=== PATIENT | male | born 1950 | race Caucasian/White ===

== ENCOUNTER → 2017-03-07 | Outpatient (CLI) | payer MEDICARE, BC ==
--- NOTE | 2017-03-07 11:10 | PN ---
PROGRESS NOTE DATE OF SERVICE: 03/07/2017 A 66-year-old gentleman who has been followed for treatment of extremely severe obstructive sleep apnea-hypopnea syndrome. The patient has apnea-hypopnea index in the range of 98. He continued to use machine every night without any problems related to the mask or humidification. He is receiving all his supplies on a regular basis and does not snore with the CPAP. [place] Sleepiness Scale today is 6. I checked his CPAP unit. Usage is 30/30 nights for more than 4 hours. Average usage is 6.6 hours. Pressure is 10 cm of water, leak L/min which is acceptable range. Apnea- hypopnea index for the last month in the range of 4. For the last night, it is 3.0. MEDICATIONS: , Toprol, aspirin, hydrochlorothiazide, Zyloprim, potassium supplement, which is lisinopril, metformin, glimepiride, Lantus, NovoLog, niacin, fish oral, vitamin D3, ciclopirox solution. PHYSICAL EXAM: Patient in no distress, BP 158/84, HR 88, RR 16, height 5, 8-1/2, weight 226, BMI 33.8, temperature 98.7, oxygen saturation at room 97%. Extremely low position of soft palate. ABDOMEN: Slightly obese. Neck Supple, no JVD. Thyroid is not palpable. LUNGS Clear to percussion and to auscultation. Good air exchange. No wheezing or rhonchi. HEART S1, S2 regular. No murmurs, gallops, or rubs. EXTREMITIES No clubbing or cyanosis. PARTRIDGE FARMER Awake, alert, and oriented X3. Cranial nerves 2 to 7 intact. There is no fasciculation or atrophy. noted. No focal deficits observed. IMPRESSION: 1. Extremely severe obstructive sleep apnea-hypopnea syndrome on control with CPAP at 10 cm of water. Patient demonstrated 100% compliance with treatment, benefitting from treatment. 2. Obesity. Patient lost 1 pounds since previous visit. 3. Hypertension. 4. Diabetes mellitus. 5. Coronary artery disease. 6. Gout. 7. Hyperlipidemia. PLAN: 1. Continue treatment with CPAP every night for the whole night at the pressure of 10 cm of water. 2. Continue losing weight. 3. Sleep hygiene with regular time in bed for at least 8 hours. 4. No driving if feeling any sleepiness. 5. Prescription for all necessary CPAP supplies, including mask, tube and filters. Followup visit in 1 year or earlier if patient has any problem related to the sleep. Thank you very much for allowing me to participate in management of your patient. Sincerely, Jonnie Cruz MD, PhD, FAASM Diplomat of [employer] Sensitized Paper Tester of [facility] [place] MMODL / IJN: [id number] /
== END | disposition home or self-care (01) ==
LOC: SLEEP 09:53
PROVIDERS: ATTEND Internal Medicine
DX: G47.33 Obstructive sleep apnea (adult) (pediatric) (principal); E66.9 Obesity, unspecified; I10 Essential (primary) hypertension; E11.9 Type 2 diabetes mellitus without complications; I25.10 Atherosclerotic heart disease of native coronary artery without angina pectoris; M10.9 Gout, unspecified; E78.5 Hyperlipidemia, unspecified

== ENCOUNTER → 2018-03-06 | Outpatient (CLI) | payer MEDICARE, BC ==
--- NOTE | 2018-03-06 17:28 | PN ---
PROGRESS NOTE DATE OF SERVICE: 03/06/2018 67-year-old gentleman who has been followed in Sleep Center for treatment of obstructive sleep apnea-hypopnea syndrome. The patient continues successfully to use his CPAP equipment every night for the whole night without any significant problems related to mask fitting, pressure, or humidification. He is getting all his supplies on a regular basis without problems. [place] Sleepiness Scale today is 4. I checked his CPAP unit. CPAP pressure is 10 cm of water. Patient using equipment 100% of the time more than 4 hours, every 7.1 hours per night. Leak is 16 L/minute which is acceptable. Apnea-hypopnea index 3.0, which is normal range. MEDICATIONS: Toprol, aspirin, hydrochlorothiazide, potassium supplement, Zyloprim, lisinopril, metformin and glimepiride, Lantus, NovoLog, niacin, fish oil, vitamin D3. PHYSICAL EXAM: Patient is in no distress. BP 125/78, HR 89, RR 16, height 5 feet 8-1/2 inches, weight 221.0, which is 5 pounds less than during last visit, temperature 98.3, oxygen saturation room air 98%. Oropharynx extremely low position of soft palate. Neck Supple, no JVD. Thyroid is not palpable. LUNGS Clear to percussion and to auscultation. Good air exchange. No wheezing or rhonchi. HEART S1, S2 regular. No murmurs, gallops, or rubs. ABDOMEN Soft and nontender. Bowel sounds are present. No organomegaly appreciated. EXTREMITIES No clubbing or cyanosis. SOFTWARE QA MANAGER Awake, alert, and oriented X3. Cranial nerves 2 to 7 intact. There is no fasciculation or atrophy. noted. No focal deficits observed. IMPRESSION: 1. Obstructive sleep apnea-hypopnea syndrome, on full control with CPAP at 10 cm of water. Patient demonstrated 100% compliance with treatment benefitting from treatment. 2. Hypertension. 3. Diabetes mellitus. 4. Coronary artery disease. 5. Gout. 6. Mild obesity, BMI 33.1. Patient lost 5 pounds. PLAN: 1. Patient will continue to use CPAP equipment every night for the whole night. 2. Continue losing weight. 3. Sleep hygiene with regular time in bed for at least 8 hours. 4. No driving if feeling sleepiness. 5. We will maintain prescription for all necessary CPAP supplies. 6. Followup visit in 1 year. Thank you very much for allowing me to participate in management of your patient. Sincerely, Jonnie Cruz MD, PhD, FAASM Diplomat of [employer] Medicine Media Sales Executive of [facility] [place] MMMAURICE / TEODORA: [id number] /
== END | disposition home or self-care (01) ==
LOC: SLEEP 15:37
PROVIDERS: ATTEND Internal Medicine
DX: G47.33 Obstructive sleep apnea (adult) (pediatric) (principal); I10 Essential (primary) hypertension; E11.9 Type 2 diabetes mellitus without complications; I25.10 Atherosclerotic heart disease of native coronary artery without angina pectoris; M10.9 Gout, unspecified; E66.9 Obesity, unspecified; Z68.33 Body mass index [BMI] 33.0-33.9, adult; Z79.82 Long term (current) use of aspirin; Z79.84 Long term (current) use of oral hypoglycemic drugs; Z79.4 Long term (current) use of insulin; Z99.89 Dependence on other enabling machines and devices; Z79.899 Other long term (current) drug therapy

== ENCOUNTER → 2018-06-13 | Outpatient (CLI) | payer MEDICARE, BC ==
--- NOTE | 2018-06-13 11:24 | XR ---
EXAMINATION TYPE: XR KUB DATE OF EXAM: 06/13/2018 COMPARISON: NONE HISTORY: Bilateral renal stones TECHNIQUE: One view abdominal series FINDINGS: The osseous structures are intact. The bowel gas pattern is nonspecific. Pelvis: There are 2 calcifications within the pelvis which have a central lucency compatible with phl eboliths. Additional vascular appearing calcifications are noted. 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 Right kidney: There is a large renal pelvic calcification measuring 1.5 x 0.9 cm. Left kidney: There are 4 calcifications within the left kidney involving the mid to lower pole rangin g in size from 5.5 to 4 mm. IMPRESSION: 1. Single large right renal pelvic calcification measuring 1.5 cm. 2. There are multiple (4) 5 mm or less lower pole left renal calculi.
== END | disposition home or self-care (01) ==
LOC: RADXRMAIN 09:48
PROVIDERS: ATTEND Urology
DX: N20.0 Calculus of kidney (principal); N28.89 Other specified disorders of kidney and ureter
CPT/HCPCS: 74018

== ENCOUNTER → 2019-02-19 | Outpatient (CLI) | payer MEDICARE, BC ==
--- NOTE | 2019-02-19 11:26 | SFUN ---
SLEEP CENTER FOLLOW UP NOTE DATE OF SERVICE: 02/19/2019 This 68-year-old gentleman has been followed in sleep center for treatment of obstructive sleep apnea-hypopnea syndrome. Patient successfully continuing to use his CPAP equipment every night for the whole night. No snoring with the machine. No symptoms of excessive daytime sleepiness. [place] Sleepiness Scale is 5. I checked CPAP unit. CPAP pressure is 10 cm of water. Usage is 100% of the time, 7.1 hours per night. Leak is 13 L/minute, which is normal range. Apnea-hypopnea index is 2.7, which is normal. MEDICATIONS: Aspirin, Toprol, hydrochlorothiazide, potassium supplement, Zyloprim, lisinopril, metformin, glimepiride, Lantus, NovoLog, niacin, fish oil, vitamin D3. PHYSICAL EXAMINATION: During physical exam, patient in no distress. VITAL SIGNS: BP 156/78, HR 84, RR 16, height 5 feet 8-1/2 inches, weight 217 pounds. The patient lost 4 pounds comparing with the previous visit one year ago. Body mass index 32.5. Temperature 98.4, oxygen saturation at room air 98%. HEENT: PERRLA, EOMI. Oropharynx extremely low soft palate, Mallampati 4. NECK: Supple, no JVD. Thyroid is not palpable. LUNGS: Clear to percussion and to auscultation. Good air exchange. No wheezing or rhonchi. HEART: S1, S2 regular. No murmurs, gallops, or rubs. ABDOMEN: Soft and nontender. Bowel sounds are present. No organomegaly appreciated. EXTREMITIES: No clubbing or cyanosis. PHOTOSTATIC COPY MAKER: Awake, alert, and oriented X3. Cranial nerves 2 to 7 intact. There is no fasciculation or atrophy. noted. No focal deficits observed. IMPRESSION: 1. Obstructive sleep apnea-hypopnea syndrome. Patient demonstrated 100% compliance with treatment benefitting from treatment. 2. Mild obesity. Patient lost 4 pounds comparing with the previous visit. 3. Hypertension. 4. Diabetes mellitus. 5. Coronary artery disease. 6. History of gout. PLAN: 1. I will maintain all necessary prescriptions for CPAP supplies including nasal pillow mask, AirFit P10, large size, tube, filters. 2. Patient will continue to use CPAP equipment every night for the whole night. 3. Continue losing weight. 4. Precautions related to driving. No driving if feeling sleepiness. 5. Follow-up visit in one year or earlier if patient has any problems. Thank you very much for allowing me to participate in management of your patient. Sincerely. Jonnie Cruz MD, PhD, FAASM Diplomat of [employer] Specialties [employer] Board of Internal Medicine Roastmaster of [facility] [place] MMODL / IJN: [id number] /
== END | disposition home or self-care (01) ==
LOC: SLEEP 10:06
PROVIDERS: ATTEND Internal Medicine
DX: G47.33 Obstructive sleep apnea (adult) (pediatric) (principal); I10 Essential (primary) hypertension; E11.9 Type 2 diabetes mellitus without complications; I25.10 Atherosclerotic heart disease of native coronary artery without angina pectoris; Z87.39 Personal history of other diseases of the musculoskeletal system and connective tissue; Z99.89 Dependence on other enabling machines and devices

== ENCOUNTER → 2019-06-17 | Outpatient (CLI) | payer MEDICARE, BC ==
--- NOTE | 2019-06-17 10:47 | XR ---
EXAMINATION TYPE: XR abdomen 1V DATE OF EXAM: 06/17/2019 COMPARISON: 06/13/2018 HISTORY: Bilateral renal calculi TECHNIQUE: One view abdominal series FINDINGS: Hypertrophic and degenerative change of the spine noted. Arthropathy of the hips with probable chroni c acetabular labral tears. Hypertrophic changes in the iliac crests.. The bowel gas pattern is nonsp ecific. Calcifications in the pelvis are stable. Right kidney: There is a large renal pelvic calcification measuring 1.5 x 0.9 cm. Left kidney: There are 4 calcifications within the left kidney involving the mid to lower pole rangin g in size from 5.5 to 4 mm. IMPRESSION: 1. Stable bilateral renal calculi..
== END | disposition home or self-care (01) ==
LOC: RADXRMAIN 08:52
PROVIDERS: ATTEND Urology
DX: N20.0 Calculus of kidney (principal)
CPT/HCPCS: 74018

== ENCOUNTER → 2019-12-01 | Outpatient (CLI) | payer MEDICARE, BC ==
[2019-12-01 17:58] LABS: Chol/HDL Ratio 6.26; LDL Cholesterol,Calculated 128.4 mg/dL (0.0-131.0); VLDL Calculation 55.6 mg/dL (5.00-40.00)
[2019-12-01 18:47] LABS: Hemoglobin A1C 8.3 % (4.0-6.0)
== END | disposition home or self-care (01) ==
LOC: LABWHC1 07:50
PROVIDERS: ATTEND Family Medicine
DX: E11.9 Type 2 diabetes mellitus without complications (principal); E78.5 Hyperlipidemia, unspecified
CPT/HCPCS: 36415; 80061; 82550; 83036

== ENCOUNTER → 2020-03-31 | Outpatient (CLI) | payer MEDICARE, BC ==
--- NOTE | 2020-03-31 19:59 | SFUN ---
SLEEP CENTER FOLLOW UP NOTE DATE OF SERVICE: 03/31/2020 This patient is a 69-year-old gentleman who has been followed in Sleep Center for treatment of obstructive sleep apnea-hypopnea syndrome. Patient successfully continues to use his CPAP equipment every night without significant problems related to mask fitting, pressure or humidification. [place] Sleepiness Scale today is 4. I checked his CPAP unit. Pressure is 10 cm of water. Usage is 30/30 nights and 28/30 nights for more than 4 hours. Average usage is 6.8 hours per night. Leak is 20 L/minute, which is borderline. Apnea-hypopnea index is 4.9. His medications are: 1. Atorvastatin 40 mg at bedtime. 2. Allopurinol 300 mg once a day. 3. Aspirin 81 mg once a day. 4. Amlodipine 5 mg once a day. 5. Glimepiride 1 mg twice a day. 6. Hydrochlorothiazide 50 mg once a day. 7. Lantus units once a day. 8. Lisinopril 20 mg twice a day. 9. Niacin 500 mg once a day. 10.NovoLog as needed per scale 3 times a day. 11.Plavix 75 mg once a day. 12.Toprol-XL 25 mg once a day. 13.Nitroglycerin 0.4 mg as needed. 14.Metformin 500 mg 3 times a day. 15.Patient also takes fish oil, vitamins, magnesium supplement. PHYSICAL EXAMINATION: GENERAL: A pleasant patient in no distress. VITAL SIGNS: BP 195/78, HR 94, RR 15, height 5 feet 8-1/2 inches, weight 213 pounds, BMI 31.9, temperature 98.6. Oxygen saturation at room air 97%. HEENT: PERRLA, EOMI. Evaluation of oropharynx showed tongue protrudes midline. Extremely low position of soft palate. Mallampati IV. NECK: Supple. No JVD. Thyroid is not palpable. LUNGS: Clear to percussion and to auscultation. Good air exchange. No wheezing or rhonchi. HEART: S1, S2 regular. No murmurs, gallops or rubs. ABDOMEN: Slightly obese. EXTREMITIES: No clubbing or cyanosis. WRAPPER COUNTER: Awake, alert, and oriented X3. Cranial nerves 2 to 7 intact. There is no fasciculation or atrophy. noted. No focal deficits observed. IMPRESSION: 1. Obstructive sleep apnea-hypopnea syndrome. Patient demonstrated good compliance with treatment, benefitting from treatment. 2. Hypertension. 3. Diabetes mellitus. 4. Coronary artery disease. 5. Gout. PLAN: 1. Patient will continue to use PAP equipment every night for the whole night. 2. Sleep hygiene with regular time in bed for at least 7-1/2 to 8 hours. 3. Precautions related to driving. No driving if feeling sleepiness. 4. I will maintain all necessary prescription for PAP supplies including mask, tube, filters. 5. Watching weight. 6. No driving if feeling sleepiness. 7. Follow-up visit in 6 months or earlier if patient has any problems. 8. I increased in CPAP to 11 cm of water because of borderline apnea/hypopnea index reading. Thank you very much for allowing me to participate in the management of your patient. Sincerely, Jonnie Cruz MD, PhD, FAASM Diplomat of [employer] Specialties [employer] Board of Internal Medicine Can Filling Machine Operator of [facility] [place] MMODL / MELLYN: [id number] /
== END | disposition home or self-care (01) ==
LOC: SLEEP 13:48
PROVIDERS: ATTEND Internal Medicine
DX: G47.33 Obstructive sleep apnea (adult) (pediatric) (principal); I10 Essential (primary) hypertension; E11.9 Type 2 diabetes mellitus without complications; I25.10 Atherosclerotic heart disease of native coronary artery without angina pectoris; M10.9 Gout, unspecified; Z99.89 Dependence on other enabling machines and devices; Z79.899 Other long term (current) drug therapy; Z79.891 Long term (current) use of opiate analgesic; Z79.01 Long term (current) use of anticoagulants; Z79.82 Long term (current) use of aspirin; Z79.4 Long term (current) use of insulin; Z79.1 Long term (current) use of non-steroidal anti-inflammatories (NSAID)

== ENCOUNTER → 2020-06-22 | Outpatient (CLI) | payer MEDICARE, BC ==
--- NOTE | 2020-06-22 09:26 | XR ---
EXAMINATION TYPE: XR KUB DATE OF EXAM: 06/22/2020 COMPARISON: 06/17/2019 HISTORY: Calculus with pain TECHNIQUE: One view abdominal series FINDINGS: Hypertrophic and degenerative changes of the spine. Bowel gas pattern nonspecific. Calcifications in the pelvis are stable and likely vascular with central lucency. Arthropathy of the hips. Right kidney: There is a stable calcification likely within the renal pelvis measuring 1.5 cm. No add itional calcifications. Left kidney: There are 3 rounded calcifications within the left kidney measuring 4.5 mm or less. Prio r exam had 4 calcifications. IMPRESSION: 1. Stable right renal calculus likely within the renal pelvis measuring 1.5 cm. 2. There are 3 left-sided renal calculi measuring 4.5 mm or less. On the prior exam there were 4 calc juan, therefore, there appears to be interval passage of one of these calculi.
== END | disposition home or self-care (01) ==
LOC: RADXRMAIN 09:04
PROVIDERS: ATTEND Urology
DX: N20.0 Calculus of kidney (principal)
CPT/HCPCS: 74018

== ENCOUNTER → 2020-10-13 | Outpatient (CLI) | payer MEDICARE, BC ==
--- NOTE | 2020-10-13 20:12 | SFUN ---
SLEEP CENTER FOLLOW UP NOTE DATE OF SERVICE: 10/13/2020 This 69-year-old gentleman has been followed in Sleep Center for treatment of obstructive sleep apnea-hypopnea syndrome. The patient successfully continues to use his CPAP equipment every night for the whole night and is getting his supplies on time. [place] Sleepiness Scale today is 5, which is normal. I checked his CPAP unit. CPAP pressure is 11 cm of water. Usage is 30/30 nights for more than 4 hours. His average usage is 6.7 hours per night. Leak is 17 L/minute. Apnea-hypopnea index is 2.5, which is normal. MEDICATIONS: 1. Atorvastatin 40 mg at bedtime. 2. Allopurinol 300 mg once a day. 3. Aspirin 81 mg once a day. 4. Amlodipine 5 mg once a day. 5. Glimepiride 1 mg twice a day. 6. Hydrochlorothiazide 50 mg once a day. 7. Lantus 70 units once a day. 8. Lisinopril 20 mg twice a day. 9. Niacin 500 mg once a day. 10.NovoLog as needed per scale 3 times a day. 11.Plavix 75 mg once a day. 12.Toprol-XL 25 mg once a day. 13.Metformin 500 mg 3 times a day. 14.Nitroglycerin 0.4 mg as needed. 15. PHYSICAL EXAMINATION: GENERAL: A pleasant patient in no distress. VITAL SIGNS: BP 161/74, HR 84, RR 12, height 5 feet 9 inches, weight 214, body mass index 31.6. Temperature 97.5, oxygen saturation at room air 99%. HEENT: PERRLA, EOMI. Evaluation of oropharynx showed tongue protrudes midline. Extremely low position of soft palate. Mallampati IV. NECK: Supple. No JVD. Thyroid is not palpable. LUNGS: Clear to percussion and to auscultation. Good air exchange. No wheezing or rhonchi. HEART: S1, S2 regular. No murmurs, gallops or rubs. ABDOMEN: Slightly obese. EXTREMITIES: No clubbing or cyanosis. MAINTENANCE PARTS TECHNICIAN: Awake, alert, and oriented X3. Cranial nerves 2 to 7 intact. There is no fasciculation or atrophy. noted. No focal deficits observed. IMPRESSION: 1. Obstructive sleep apnea-hypopnea syndrome. Patient demonstrated 100% compliance with treatment. Normal respiration with CPAP. 2. Hypertension. 3. Diabetes mellitus. 4. Coronary artery disease. 5. Gout. 6. Mild obesity. BMI 31.6. 7. Moderate periodic limb movements during diagnostic night and no significant periodic limb movements during titration. Presently no complaints of leg movements at night. PLAN: 1. Patient will continue to use PAP equipment every night for the whole night. 2. Sleep hygiene with regular time in bed for at least 7-1/2 to 8 hours. 3. Precautions related to driving. No driving if feeling sleepiness. 4. I will maintain all necessary prescription for PAP supplies including mask, tube, filters. 5. Watching weight. 6. Follow-up visit in 6 months or earlier if patient has any problems. Thank you very much for allowing me to participate in the management of your patient. Sincerely, Jonnie Cruz MD, PhD, FAASM Diplomat of [employer] Specialties [employer] Board of Internal Medicine Core Blower Operator of [facility] [place] MMODL / IJN: [id number] /
== END ==
LOC: SLEEP 10:01
PROVIDERS: ATTEND Internal Medicine
DX: G47.33 Obstructive sleep apnea (adult) (pediatric) (principal); I10 Essential (primary) hypertension; E11.9 Type 2 diabetes mellitus without complications; I25.10 Atherosclerotic heart disease of native coronary artery without angina pectoris; M10.9 Gout, unspecified; E66.01 Morbid (severe) obesity due to excess calories; Z68.31 Body mass index [BMI] 31.0-31.9, adult; Z79.82 Long term (current) use of aspirin; Z79.4 Long term (current) use of insulin; Z79.899 Other long term (current) drug therapy

== ENCOUNTER → 2021-04-26 | Outpatient (CLI) | payer MEDICARE, BC ==
--- NOTE | 2021-04-26 20:06 | SFUN ---
SLEEP CENTER FOLLOW UP NOTE DATE OF SERVICE: 04/26/2021 This 70-year-old gentleman has been followed in Sleep Center for treatment of obstructive sleep apnea-hypopnea syndrome. The patient continues to use his CPAP equipment every night for the whole night. No snoring with CPAP. He is getting his supplies from [employer] on time. He feels well. Recently he had a cardiac stress test and the results were good, according to the patient. [place] Sleepiness Scale today is 5, which is normal. I checked his CPAP unit. Pressure is 11 cm of water. Usage is 100% of nights for more than 4 hours with average 7.2 hours per night. Leak is 17 L/minute. Apnea-hypopnea index 1.5. MEDICATIONS: 1. Aspirin 81 mg once a day. 2. Lipitor 40 mg once a day. 3. Zyloprim 300 mg once a day. 4. Norvasc 5 mg once a day. 5. Plavix 75 mg once a day. 6. Toprol-XL 25 mg once a day. 7. Amaryl 1 mg two tablets a day. 8. Glucophage 500 mg three times a day. 9. Lisinopril 20 mg twice a day. 10.Hydrochlorothiazide 50 mg once a day. 11.Urocit once a day. 12.Niacin 500 mg once a day. 13.Fish oil. 14.Vitamin D3 supplements. PHYSICAL EXAMINATION: GENERAL APPEARANCE: Pleasant patient in no distress. VITAL SIGNS: BP 178/73, HR about 100, RR 15, height 5 feet 8 inches, weight 215.6, body mass index 32.6, temperature 97.5, oxygen saturation at room air 98%. HEENT: PERRLA, EOMI, evaluation of oropharynx showed tongue protrudes midline. Extremely low position of soft palate; Mallampati IV. NECK: Supple, no JVD. Thyroid is not palpable. LUNGS: Clear to percussion and to auscultation. Good air exchange. No wheezing or rhonchi. HEART: S1, S2 regular. No murmurs, gallops, or rubs. ABDOMEN: Slightly obese. EXTREMITIES: No clubbing or cyanosis. SUSTAINABLE LANDSCAPE ARCHITECT: Awake, alert, and oriented X3. Cranial nerves 2 to 7 intact. There is no fasciculation or atrophy. noted. No focal deficits observed. IMPRESSION: 1. Obstructive sleep apnea-hypopnea syndrome. Patient demonstrated great compliance with treatment, benefitting from treatment. 2. Hypertension. 3. Coronary artery disease. 4. Diabetes mellitus. 5. Gout. 6. Mild obesity. 7. History of periodic limb movements in the past. No complaints at the present time. PLAN: 1. Patient will continue to use PAP equipment every night for the whole night. 2. Sleep hygiene with regular time in bed for at least 7-1/2 to 8 hours. 3. Precautions related to driving. No driving if feeling sleepiness. 4. I will maintain all necessary prescription for PAP supplies including mask, tube, filters. 5. Watching weight. 6. Follow-up visit in 6 months or earlier if patient has any problems. Thank you very much for allowing me to participate in the management of your patient. Sincerely, Jonnie Cruz MD, PhD, FAASM Diplomat of [employer]ties Sleep Medicine Board of [employer] Board of Internal Medicine Quantitative Analyst Developer of [facility] [place] MMODL / MELLYN: [id number] /
== END | disposition home or self-care (01) ==
LOC: SLEEP 10:02
PROVIDERS: ATTEND Internal Medicine
DX: G47.33 Obstructive sleep apnea (adult) (pediatric) (principal); I10 Essential (primary) hypertension; I25.10 Atherosclerotic heart disease of native coronary artery without angina pectoris; E11.9 Type 2 diabetes mellitus without complications; M10.9 Gout, unspecified; E66.9 Obesity, unspecified

== ENCOUNTER → 2021-06-13 | Outpatient (CLI) | payer MEDICARE, BC ==
--- NOTE | 2021-06-13 13:27 | XR ---
KUB HISTORY: Calculus of kidney, bilateral kidney stones KUB submitted on 2 images and correlated prior exam June 22, 2020 Multiple calcifications over the lower pole the left kidney are stable, one traverses change position and is more inferior to the 2 calcifications which are grouped. The largest calcification over the r ight kidney is also stable. Overlying bowel gas may obscure detail. There is overlying artifact prese nt. There are calcifications present within the pelvis which may be vascular. Multilevel spondylosis noted within the visualized spine. No evident pneumoperitoneum or bowel obstruction. IMPRESSION: Bilateral nephrolithiasis.
== END | disposition home or self-care (01) ==
LOC: RADXRMAIN 10:11
PROVIDERS: ATTEND Urology
DX: N20.0 Calculus of kidney (principal)
CPT/HCPCS: 74018

== ENCOUNTER → 2021-10-25 | Outpatient (CLI) | payer MEDICARE, BC ==
--- NOTE | 2021-10-25 13:38 | SFUN ---
SLEEP CENTER FOLLOW UP NOTE DATE OF SERVICE: 10/25/2021 This 70-year-old gentleman has been followed in Sleep Center for treatment of obstructive sleep apnea-hypopnea syndrome. The patient continues to use his CPAP equipment every night, getting his CPAP supplies on time. No snoring with the machine. He is changing his air filter. [place] Sleepiness Scale today is 6, which is normal. I checked his CPAP unit. Pressure is 11 cm of water. Usage is 30/30 nights for more than 4 hours, average 6.3 hours per night. Leak is 19 L/minute. Apnea-hypopnea index is 1.7, which is totally normal. Air filter is good condition. MEDICATIONS: 1. Atorvastatin 40 mg once a day. 2. Allopurinol 300 mg once a day. 3. Aspirin 81 mg once a day. 4. Amlodipine 5 mg once a day. 5. Glimepiride 1 mg twice a day. 6. Hydrochlorothiazide 50 mg once a day. 7. Lantus units at night. 8. Lisinopril 20 mg twice a day. 9. Niacin 500 mg once a day. 10.NovoLog as needed per scale. 11.Plavix 75 mg once a day. 12.Toprol-XL 25 mg once a day. 13.Nitroglycerin as needed. 14.Metformin 500 mg three times a day. PHYSICAL EXAMINATION: GENERAL: Pleasant patient in no distress. VITAL SIGNS: BP 180/72, HR 87, RR 16, weight 212.6, height 5 feet 8 inches, temperature 97.1, oxygen saturation at room air 98%. HEENT: PERRLA, EOMI, evaluation of oropharynx showed tongue protrudes midline. Extremely low position of soft palate; Mallampati IV. NECK: Supple, no JVD. Thyroid is not palpable. LUNGS: Clear to percussion and to auscultation. Good air exchange. No wheezing or rhonchi. HEART: S1, S2 regular. No murmurs, gallops, or rubs. ABDOMEN: Slightly obese. EXTREMITIES: No clubbing or cyanosis. TECHNOLOGY METHODOLOGY CONSULTANT: Awake, alert, and oriented X3. Cranial nerves 2 to 7 intact. There is no fasciculation or atrophy. noted. No focal deficits observed. IMPRESSION: 1. Obstructive sleep apnea-hypopnea syndrome. Patient demonstrated 100% compliance with treatment, benefitting from treatment. Normal respiration on CPAP. 2. Coronary artery disease. 3. Hypertension. 4. Diabetes mellitus. 5. Gout. 6. Obesity, mild. 7. History of periodic limb movements in the past; no clinical problems at the present time. PLAN: 1. Patient will continue to use PAP equipment every night for the whole night. 2. Sleep hygiene with regular time in bed for at least 7-1/2 to 8 hours. 3. Precautions related to driving. No driving if feeling sleepiness. 4. I will maintain all necessary prescription for PAP supplies including mask, tube, filters. 5. Watching weight. 6. Follow-up visit in 6 months or earlier if patient has any problems. Thank you very much for allowing me to participate in the management of your patient. Sincerely, Jonnie Cruz MD, PhD, FAASM Diplomat of [place] [employer]ties Sleep Medicine Board of [place] Board of Internal Medicine Manager Strategy & Account of [facility] [place] MMODL / MELLYN: [id number] /
== END | disposition home or self-care (01) ==
LOC: SLEEP 10:11
PROVIDERS: ATTEND Internal Medicine
DX: G47.33 Obstructive sleep apnea (adult) (pediatric) (principal); I25.10 Atherosclerotic heart disease of native coronary artery without angina pectoris; I10 Essential (primary) hypertension; E11.9 Type 2 diabetes mellitus without complications; M10.9 Gout, unspecified; E66.9 Obesity, unspecified

== ENCOUNTER → 2021-11-29 | Outpatient (CLI) | payer MEDICARE, BC ==
[2021-11-29 11:08] LABS: ALT 30 U/L (10-49); AST 25 U/L (14-35); African American GFR (CKD) 77.3 (60.0-200.0); Albumin 4.6 g/dL (3.8-4.9); Albumin/Globulin Ratio 1.77 (1.60-3.17); Alkaline Phosphatase 51 U/L (41-126); BUN/Creat Ratio 15.64 Ratio (12.00-20.00); Blood Urea Nitrogen 17.2 mg/dL (9.0-27.0); Carbon Dioxide 29.1 mmol/L (20.0-27.5); Chloride 101 mmol/L (96-109); Chol/HDL Ratio 5.96 Ratio; Globulin 2.6 g/dL (1.6-3.3); Glucose 140 mg/dL (70-110); LDL Cholesterol,Calculated 116.8 mg/dL (0.0-131.0); Non-African American GFR(CKD) 66.7 (60.0-200.0); Potassium 4.8 mmol/L (3.5-5.5); Sodium 141 mmol/L (135-145); Total Protein 7.2 g/dL (6.2-8.2)
== END | disposition home or self-care (01) ==
LOC: LABWHC1 07:53
PROVIDERS: ATTEND Internal Medicine Endocrinology, Diabetes & Metabolism
DX: E11.65 Type 2 diabetes mellitus with hyperglycemia (principal)
CPT/HCPCS: 36415; 80053; 80061; 82043; 82570; 83036; 84443

== ENCOUNTER → 2022-03-09 | Outpatient (CLI) | payer MEDICARE, BC ==
[2022-03-09 16:20] LABS: ALT 19 U/L (10-49); AST 19 U/L (14-35); African American GFR (CKD) 63.2 (60.0-200.0); Albumin 4.2 g/dL (3.8-4.9); Albumin/Globulin Ratio 1.27 (1.60-3.17); Alkaline Phosphatase 55 U/L (41-126); BUN/Creat Ratio 19.38 Ratio (12.00-20.00); Blood Urea Nitrogen 25.2 mg/dL (9.0-27.0); Calcium 9.5 mg/dL (8.7-10.3); Carbon Dioxide 27.5 mmol/L (20.0-27.5); Chloride 99 mmol/L (96-109); Chol/HDL Ratio 2.64 Ratio; Globulin 3.3 g/dL (1.6-3.3); Glucose 123 mg/dL (70-110); LDL Cholesterol,Calculated 45.7 mg/dL (0.0-131.0); Non-African American GFR(CKD) 54.5 (60.0-200.0); Potassium 4.6 mmol/L (3.5-5.5); Sodium 139 mmol/L (135-145); Total Protein 7.5 g/dL (6.2-8.2); VLDL Calculation 17.04 mg/dL (5.00-40.00)
[2022-03-10 01:13] LABS: Microalbumin Creatinine Ratio <30 mg/g Creat (0-30)
== END | disposition home or self-care (01) ==
LOC: LABWHC1 07:52
PROVIDERS: ATTEND Internal Medicine Endocrinology, Diabetes & Metabolism
DX: E11.65 Type 2 diabetes mellitus with hyperglycemia (principal)
CPT/HCPCS: 36415; 80053; 80061; 82043; 82570; 83036; 84443

== ENCOUNTER → 2022-05-09 | Outpatient (CLI) | payer MEDICARE, BC ==
--- NOTE | 2022-05-09 11:45 | P.PN ---
Subjective DATE: [] FOLLOW UP VISIT. Patient with obstructive sleep apnea hypopnea syndrome return to sleep center for follow-up visit. Information from previous visit have been reviewed. Patient is using PAP equipment every night for the whole night, getting PAP supplies in time. The patient does not have significant problems with the mask, PAP unit and humidification. [place] sleepiness scale is 3, which is normal. I checked information from PAP unit. PAP unit pressure 11 cm H2O. Usage is 100 % for more then 4 hours, average 6.3 hours per night. Leak is 17 l/m, which is in acceptable range. Apnea Hypopnea Index is and 1.2, which is normal. Recent level of hemoglobin A1c 7.7 according to patient. MEDICATIONS:1. Atorvastatin 40 mg once a day 2. Allopurinol 300 mg once a day 3. Amlodipine 5 mg once a day 4. Hydrochlorothiazide 50 mg once a day 5. Glimepiride 1 mg twice a day 6. Lisinopril 20 mg twice a day 7. Metformin 500 mg 3 times a day 8. Insulin 9. Toprol 25 mg once a day During physical exam: GENERAL: A pleasant patient without any distress. VITAL SIGNS: BP 166/77, HR 92, RR 16, weight 213.8, temperature 97.8, oxygen saturation at room air 99 % . HEENT: PERRLA, EOMI.low position of soft palate, Mallapati 4 . NECK: Supple. No JVD. LUNGS: Clear to percussion and to auscultation. Good air exchange. No wheezing or rhonchi. HEART: S1, S2 regular. ABDOMEN: Soft and nontender. Slightly obese EXTREMITIES: No clubbing or cyanosis. ADVANCED RESEARCH PROGRAMS DIRECTOR: Awake, alert, and oriented x3. No focal deficit. Impressions: 1. Obstructive sleep apnea-hypopnea syndrome. Patient demonstrated great compliance with treatment, benefiting from treatment. 2. Coronary artery disease. 3. Hypertension. 4. Diabetes mellitus. 5. Gout. 6. Mild obesity. 7. History of periodic limb movements in the past, clinically no problems now. . Plan: 1. Continue using PAP equipment every night for the whole night. 2. To change air filter at least 1-2 times per month. 3. PAP unit should stay lower then position of the head. 4. Advised patient to remove all remaining water from humidifier canister daily and make it dry after each usage. Refill canister with fresh distilled water before each usage. 5. Sleep hygiene with regular time in bed for at least 8 hours. 6. Precautions related to driving. No driving if feel any sleepiness. 7. I will maintain prescription for PAP supplies including mask, tube, filters. 8. Follow up visit in 6 months or earlier if patient has any problems. 9. Watching and losing weight. Thank you very much for allowing me to participate in the management of your patient. Jonnie Cruz MD, PhD, FAASM. Diplomat of [place] [employer], Sleep Medicine Board by [place] [employer] Section Housekeeper of [facility] [place]
== END ==
LOC: SLEEP 10:28
PROVIDERS: ATTEND Internal Medicine
DX: G47.33 Obstructive sleep apnea (adult) (pediatric) (principal); Z99.89 Dependence on other enabling machines and devices; I10 Essential (primary) hypertension; E11.9 Type 2 diabetes mellitus without complications; M10.9 Gout, unspecified; E66.8 Other obesity; I25.10 Atherosclerotic heart disease of native coronary artery without angina pectoris; G47.61 Periodic limb movement disorder
CPT/HCPCS: 99212

== ENCOUNTER → 2022-06-12 | Outpatient (CLI) | payer MEDICARE, BC ==
--- NOTE | 2022-06-12 08:27 | XR ---
EXAMINATION TYPE: XR KUB DATE OF EXAM: 06/12/2022 8:08 AM INDICATION: Patient age:Male; 71 years old; Reason for study: N200; COMPARISON: Multiple KUBs most recent on 06/13/2021. TECHNIQUE: One radiographic view of the abdomen was obtained. FINDINGS: Electronic device projection of the right iliac bone. Bilateral renal calculi the largest m easuring measuring 1.4 cm and on the left at least 2 calculi measuring the 7 and 6 mm. The bowel gas pattern is nonspecific without dilated loops of small or large bowel. There is no evidence for organo megaly or pneumoperitoneum. The osseous structures are intact. Fecal material and gas are demonstr ated throughout the colon and rectum. IMPRESSION: 1. Bilateral nephrolithiasis measuring up to 1.4 cm on the right and 0.7 cm on the left. 2. Nonspecific bowel gas pattern without radiographic evidence for acute process.
[2022-06-12 14:53] LABS: ALT 28 U/L (10-49); AST 34 U/L (14-35); Albumin 4.7 g/dL (3.8-4.9); Albumin/Globulin Ratio 1.52 (1.60-3.17); Alkaline Phosphatase 52 U/L (41-126); BUN/Creat Ratio 19.75 Ratio (12.00-20.00); Blood Urea Nitrogen 23.3 mg/dL (9.0-27.0); Carbon Dioxide 27.2 mmol/L (20.0-27.5); Chloride 99 mmol/L (96-109); Chol/HDL Ratio 3.96 Ratio; Globulin 3.1 g/dL (1.6-3.3); Glucose 150 mg/dL (70-110); LDL Cholesterol,Calculated 77.1 mg/dL (0.0-131.0); Non-African American GFR(CKD) 61.3 (60.0-200.0); Potassium 4.1 mmol/L (3.5-5.5); Sodium 141 mmol/L (135-145); Total Protein 7.9 g/dL (6.2-8.2)
[2022-06-12 18:44] LABS: Microalbumin Creatinine Ratio <30 mg/g Creat (0-30); Urine Creatinine 99.3 mg/dL (39.0-259.0)
== END | disposition home or self-care (01) ==
LOC: LABWHC1 07:43
PROVIDERS: ATTEND Internal Medicine Endocrinology, Diabetes & Metabolism
DX: N20.0 Calculus of kidney (principal); E11.65 Type 2 diabetes mellitus with hyperglycemia; R97.20 Elevated prostate specific antigen [PSA]
CPT/HCPCS: 36415; 74018; 80053; 80061; 82043; 82570; 83036; 84153; 84443

== ENCOUNTER → 2022-08-29 | Outpatient (CLI) | payer MEDICARE, BC ==
[2022-08-29 11:44] LABS: ALT 33 U/L (10-49); AST 24 U/L (14-35); African American GFR (CKD) 77.3 (60.0-200.0); Albumin 4.5 g/dL (3.8-4.9); Albumin/Globulin Ratio 1.88 (1.60-3.17); Alkaline Phosphatase 45 U/L (41-126); Blood Urea Nitrogen 28.6 mg/dL (9.0-27.0); Calcium 9.9 mg/dL (8.7-10.3); Carbon Dioxide 28.9 mmol/L (20.0-27.5); Chloride 101 mmol/L (96-109); Chol/HDL Ratio 3.55 Ratio; Globulin 2.4 g/dL (1.6-3.3); Glucose 125 mg/dL (70-110); LDL Cholesterol,Calculated 58.3 mg/dL (0.0-131.0); Non-African American GFR(CKD) 66.7 (60.0-200.0); Potassium 4.3 mmol/L (3.5-5.5); Sodium 140 mmol/L (135-145); Total Protein 6.9 g/dL (6.2-8.2)
[2022-08-29 18:13] LABS: Microalbumin Creatinine Ratio <30 mg/g Creat (0-30); Urine Creatinine 84.7 mg/dL (39.0-259.0)
== END | disposition home or self-care (01) ==
LOC: LABWHC1 07:07
PROVIDERS: ATTEND Internal Medicine Endocrinology, Diabetes & Metabolism
DX: E11.65 Type 2 diabetes mellitus with hyperglycemia (principal)
CPT/HCPCS: 36415; 80053; 80061; 82043; 82570; 83036; 84443

== ENCOUNTER → 2022-12-06 | Outpatient (CLI) | payer MEDICARE, BC ==
[2022-12-06 11:11] LABS: ALT 29 U/L (10-49); AST 26 U/L (14-35); Albumin 4.6 d/dL (3.8-4.9); Albumin/Globulin Ratio 1.77 Ratio (1.60-3.17); Alkaline Phosphatase 53 U/L (41-126); BUN/Creat Ratio 24.18 Ratio (12.00-20.00); Blood Urea Nitrogen 26.6 mg/dL (9.0-27.0); Calcium 9.9 mg/dL (8.7-10.3); Carbon Dioxide 25.4 mmol/L (21.6-31.8); Chloride 103 mmol/L (96-109); Chol/HDL Ratio 3.41 Ratio; Globulin 2.6 d/dL (1.6-3.3); Glucose 154 mg/dL (70-110); LDL Cholesterol,Calculated 38.5 mg/dL (0.0-131.0); Potassium 4.2 mmol/L (3.5-5.5); Sodium 141 mmol/L (135-145); Total Bilirubin 0.4 mg/dL (0.3-1.2); Total Protein 7.2 d/dL (6.2-8.2)
[2022-12-07 00:33] LABS: Microalbumin Creatinine Ratio <20 mg/g Cr (0-30); Urine Creatinine 61.4 mg/dL (39.0-259.0)
== END | disposition home or self-care (01) ==
LOC: LABWHC1 07:47
PROVIDERS: ATTEND Internal Medicine Endocrinology, Diabetes & Metabolism
DX: E11.65 Type 2 diabetes mellitus with hyperglycemia (principal); R97.20 Elevated prostate specific antigen [PSA]
CPT/HCPCS: 36415; 80053; 80061; 82043; 82570; 83036; 84153; 84443

== ENCOUNTER → 2023-04-11 | Outpatient (CLI) | payer MEDICARE, BC ==
[2023-04-11 11:27] LABS: Chol/HDL Ratio 3.46 Ratio
[2023-04-11 11:28] LABS: ALT 35 U/L (10-49); AST 29 U/L (14-35); Albumin 4.5 d/dL (3.8-4.9); Albumin/Globulin Ratio 1.88 Ratio (1.60-3.17); Alkaline Phosphatase 52 U/L (41-126); BUN/Creat Ratio 19.36 Ratio (12.00-20.00); Blood Urea Nitrogen 21.3 mg/dL (9.0-27.0); Calcium 9.3 mg/dL (8.7-10.3); Carbon Dioxide 28.2 mmol/L (21.6-31.8); Chloride 100 mmol/L (96-109); Globulin 2.4 d/dL (1.6-3.3); Glucose 171 mg/dL (70-110); Potassium 4.8 mmol/L (3.5-5.5); Sodium 140 mmol/L (135-145); Total Bilirubin 0.5 mg/dL (0.3-1.2); Total Protein 6.9 d/dL (6.2-8.2)
[2023-04-11 14:00] LABS: Microalbumin Creatinine Ratio <15 mg/g Cr (0-30); Urine Creatinine 77.7 mg/dL (39.0-259.0)
== END | disposition home or self-care (01) ==
LOC: LABWHC1 07:13
PROVIDERS: ATTEND Internal Medicine Endocrinology, Diabetes & Metabolism
DX: E11.65 Type 2 diabetes mellitus with hyperglycemia (principal)
CPT/HCPCS: 36415; 80053; 80061; 82043; 82570; 83036; 84443

== ENCOUNTER → 2023-05-15 | Outpatient (CLI) | payer MEDICARE ==
--- NOTE | 2023-05-15 11:47 | P.PN ---
Subjective DATE: 05/15/2023 FOLLOW UP VISIT. Patient with obstructive sleep apnea hypopnea syndrome return to sleep center for follow-up visit. Information from previous visit have been reviewed. Patient is using PAP equipment every night for the whole night, getting PAP supplies in time. The patient does not have significant problems with the mask, PAP unit and humidification. [place] sleepiness scale is 3, which is normal. I checked information from PAP unit. PAP unit pressure 11 cm H2O. Usage is 100 % for more then 4 hours, average 5.3 hours per night. Leak is 28 l/m, which is in acceptable range. Apnea Hypopnea Index is 3.2, which is normal. MEDICATIONS:1. Atorvastatin 40 mg once a day 2. Allopurinol 100 mg once a day 3. Amlodipine 5 mg once a day 4. Hydrochlorothiazide 50 mg once a day 5. Jardiance 10 mg once a day 6. Insulin 7. Metformin 500 mg 3 times a day 8. Lisinopril 20 mg twice a day 9. Metoprolol 25 mg once a day 10. Mounjaro 5 mg once a week During physical exam: GENERAL: A pleasant patient without any distress. VITAL SIGNS: BP 154/75, HR 97, RR 16 , weight 200, temperature 97.9, oxygen saturation at room air 97 % . HEENT: PERRLA, EOMI.low position of soft palate, Mallapati 4 . NECK: Supple. No JVD. LUNGS: Clear to percussion and to auscultation. Good air exchange. No wheezing or rhonchi. HEART: S1, S2 regular. ABDOMEN: Soft and nontender.[] EXTREMITIES: No clubbing or cyanosis. METAL CONTAINER MAKER: Awake, alert, and oriented x3. No focal deficit. Impressions: 1. Obstructive sleep apnea-hypopnea syndrome. Patient demonstrated great compliance with treatment, benefiting from treatment. 2. Diabetes mellitus, according to patient present hemoglobin A1c 7.8. 3. Hypertension. 4. Coronary artery disease. 5. Gout. 6. History of periodic limb movements, no clinical problems present. 7. Mild obesity, BMI 30.4, patient lost about 13 pounds since previous visit. Plan: 1. Continue using PAP equipment every night for the whole night. 2. To change air filter at least 1-2 times per month. 3. PAP unit should stay lower then position of the head. 4. Advised patient to remove all remaining water from humidifier canister daily and make it dry after each usage. Refill canister with fresh distilled water before each usage. 5. Sleep hygiene with regular time in bed for at least 8 hours. 6. Precautions related to driving. No driving if feel any sleepiness. 7. I will maintain prescription for PAP supplies including mask, tube, filters. 8. Watching weight. 9. Follow up visit in 6 months or earlier if patient has any problems. Thank you very much for allowing me to participate in the management of your patient. Jonnie Cruz MD, PhD, FAASM. Diplomat of [place] [employer], Sleep Medicine Board by [place] [employer] Radar Systems Engineer of [facility] [place]
== END ==
LOC: 3 N SLEEP 10:50
PROVIDERS: ATTEND Internal Medicine
DX: G47.33 Obstructive sleep apnea (adult) (pediatric) (principal); E11.9 Type 2 diabetes mellitus without complications; I10 Essential (primary) hypertension; I25.10 Atherosclerotic heart disease of native coronary artery without angina pectoris; E66.9 Obesity, unspecified; M10.9 Gout, unspecified; Z68.30 Body mass index [BMI] 30.0-30.9, adult; Z99.89 Dependence on other enabling machines and devices; Z79.84 Long term (current) use of oral hypoglycemic drugs; Z79.4 Long term (current) use of insulin; Z79.85 Long-term (current) use of injectable non-insulin antidiabetic drugs
CPT/HCPCS: 99212

== ENCOUNTER → 2023-06-14 | Outpatient (CLI) | payer MEDICARE ==
--- NOTE | 2023-06-14 08:31 | XR ---
EXAMINATION TYPE: XR KUB DATE OF EXAM: 06/14/2023 7:22 AM CLINICAL INDICATION:Male, 72 years old with history of 2V CH XR; [facility] COMPARISON: 06/12/2022. TECHNIQUE: One radiographic view of the abdomen was obtained. FINDINGS: The bowel gas pattern is nonspecific without dilated loops of small or large bowel. There i s no evidence for organomegaly or pneumoperitoneum. The osseous structures are intact. . Fecal mate rial and gas are demonstrated throughout the colon and rectum. Right renal calculus measuring up to 16 mm. Left renal calculi seen on prior are not well appreciated. The tract was projects over the abd omen. Multilevel degeneration changes throughout the spine. IMPRESSION: Nonspecific bowel gas pattern without radiographic evidence for acute process. Right renal calculi.
[2023-06-14 16:22] LABS: HCT 46.9 % (39.6-50.0); HGB 14.9 g/dL (13.0-17.0); MCH 28.4 pg (27.0-32.0); MCHC 31.8 g/dL (32.0-37.0); MCV 89.5 FL (80.0-97.0); Mean Platelet Volume 9.3 FL (9.5-12.2); NRBC Per 100 WBC 0.02 X 10*3/uL (0.00-0.01); Platelet Count 435 X 10*3/uL (140-440); RBC 5.24 X 10*6/uL (4.40-5.60); WBC 8.32 X 10*3/uL (4.50-10.00)
[2023-06-14 16:46] LABS: ALT 20 U/L (10-49); AST 21 U/L (14-35); Albumin 4.4 g/dL (3.8-4.9); Albumin/Globulin Ratio 1.47 Ratio (1.60-3.17); Alkaline Phosphatase 54 U/L (41-126); BUN/Creat Ratio 18.73 Ratio (12.00-20.00); Blood Urea Nitrogen 20.6 mg/dL (9.0-27.0); Calcium 10.2 mg/dL (8.7-10.3); Carbon Dioxide 24.1 mmol/L (21.6-31.8); Chloride 98 mmol/L (96-109); Glucose 163 mg/dL (70-110); Potassium 4.7 mmol/L (3.5-5.5); Prostate Specific Antigen 1.78 ng/mL (0.000-6.500); Sodium 138 mmol/L (135-145); Total Bilirubin 0.4 mg/dL (0.3-1.2); Total Protein 7.4 g/dL (6.2-8.2)
== END | disposition home or self-care (01) ==
LOC: LABWHC1 06:57
PROVIDERS: ATTEND Urology
DX: E29.1 Testicular hypofunction (principal); N20.0 Calculus of kidney; R35.1 Nocturia
CPT/HCPCS: 36415; 74018; 80053; 84153; 85027

== ENCOUNTER → 2023-10-17 | Outpatient (CLI) | payer MEDICARE ==
[2023-10-17 15:34] LABS: ALT 21 U/L (10-49); AST 23 U/L (14-35); Albumin 4.4 g/dL (3.8-4.9); Albumin/Globulin Ratio 1.57 Ratio (1.60-3.17); Alkaline Phosphatase 63 U/L (41-126); Blood Urea Nitrogen 21.7 mg/dL (9.0-27.0); Calcium 10.2 mg/dL (8.7-10.3); Carbon Dioxide 25.7 mmol/L (21.6-31.8); Chloride 102 mmol/L (96-109); Globulin 2.8 g/dL (1.6-3.3); Glucose 117 mg/dL (70-110); LDL Cholesterol,Calculated 54.9 mg/dL (0.0-131.0); Potassium 4.5 mmol/L (3.5-5.5); Sodium 141 mmol/L (135-145); Total Bilirubin 0.2 mg/dL (0.3-1.2); Total Protein 7.2 g/dL (6.2-8.2); VLDL Calculation 19.06 mg/dL (5.00-40.00)
[2023-10-17 23:58] LABS: Microalbumin Creatinine Ratio <9 mg/g Cr (0-30)
== END | disposition home or self-care (01) ==
LOC: LABWHC1 07:23
PROVIDERS: ATTEND Internal Medicine Endocrinology, Diabetes & Metabolism
DX: E11.65 Type 2 diabetes mellitus with hyperglycemia (principal)
CPT/HCPCS: 36415; 80053; 80061; 82043; 82570; 83036; 84443

== ENCOUNTER → 2023-12-18 | Outpatient (CLI) | payer MEDICARE ==
[2023-12-18 11:47] VITALS: BP 126/74; PULSE 83; RESP 16; TEMP 98.1
--- NOTE | 2023-12-18 11:57 | P.PROGSL ---
Subjective DATE: 12/18/2023 FOLLOW UP VISIT. Patient with obstructive sleep apnea hypopnea syndrome return to sleep center for follow-up visit. Information from previous visit have been reviewed. Patient is using PAP equipment every night for the whole night, getting PAP supplies in time. The patient does not have significant problems with the mask, PAP unit and humidification. [place] sleepiness scale is 3, which is perfect. I checked information from PAP unit. PAP unit pressure 11 cm H2O. Usage is 100% for more then 4 hours, average 6.1 hours per night. Leak is increased to 43 l/m. Apnea Hypopnea Index is 1.2, which is normal. MEDICATIONS: Please see below During physical exam: GENERAL: A pleasant patient without any distress. VITAL SIGNS: Please see below, weight 188 pounds. HEENT: PERRLA, EOMI.low position of soft palate, Mallapati 4 . NECK: Supple. No JVD. LUNGS: Clear to percussion and to auscultation. Good air exchange. No wheezing or rhonchi. HEART: S1, S2 regular. ABDOMEN: Soft and nontender.[] EXTREMITIES: No clubbing or cyanosis. ENTERPRISE RESOURCE ANALYST: Awake, alert, and oriented x3. No focal deficit. Impressions: 1. Obstructive sleep apnea-hypopnea syndrome. Patient demonstrated great compliance with treatment, benefiting from treatment. 2. Hypertension. 3. Coronary artery disease. 4. Hyperlipidemia. 5. Gout. 6. History of periodic limb movements, no complaints at the present time. 7. BMI 28.5, patient lost 12 pounds comparing with the previous visit. Plan: 1. Continue using PAP equipment every night for the whole night. 2. To change air filter at least 1-2 times per month. 3. PAP unit should stay lower then position of the head. 4. Advised patient to remove all remaining water from humidifier canister daily and make it dry after each usage. Refill canister with fresh distilled water before each usage. 5. Sleep hygiene with regular time in bed for at least 8 hours. 6. Precautions related to driving. No driving if feel any sleepiness. 7. I will maintain prescription for PAP supplies including mask, tube, filters. 8. Follow up visit in 6 months or earlier if patient has any problems. 9. Watching weight. Thank you very much for allowing me to participate in the management of your patient. Jonnie Cruz MD, PhD, FAASM. Diplomat of [place] Board of Sleep Medicine, Sleep Medicine Board by [place] [employer] of Internal Medicine Dairy Husbandry Teacher of [facility] [place] Objective - Vital Signs Vital Signs: Vital Signs Temp 98.1 F 12/18/23 11:44 Pulse 83 12/18/23 11:44 Resp 16 12/18/23 11:44 BP 126/74 12/18/23 11:44 Pulse Ox 99 12/18/23 11:44 FiO2 Intake & Output 12/17/23 12/18/23 12/18/23 18:59 06:59 18:59 Weight 85.275 kg Home Medications: Home Medications Medication Instructions Recorded Confirmed Type Aspirin [[place] Aspirin EC] 81 mg PO 12/18/23 History Atorvastatin [Lipitor] 40 mg PO DAILY 12/18/23 12/18/23 History Cholecalciferol [Vitamin D3 (25 1,000 PO DAILY 12/18/23 History Mcg = 1000 Iu)] Empagliflozin [Jardiance] 10 mg PO 12/18/23 History Fish Oil/Dha/Epa [Fish Oil 1,200 1 each PO 12/18/23 History mg Fish Oil] Insulin Aspart [NovoLOG] 10 - 20 TID 12/18/23 History Insulin Glargine,Hum.rec.anlog 50 units SQ HS 12/18/23 12/18/23 History [Lantus Solostar Pen] Magnesium Carb,Citrate,Oxide 400 mg PO DAILY 12/18/23 12/18/23 History [Magnesium Complex] Metoprolol Succinate (ER) [Toprol 25 mg PO DAILY 12/18/23 12/18/23 History Xl] Niacin 500 mg PO 12/18/23 History Nitroglycerin 0.4 mg SL PRN 12/18/23 History Potassium Citrate [Potassium 10 meq PO 12/18/23 History Citrate ER] Semaglutide [Ozempic] 1 mg SQ 12/18/23 History Ubidecarenone [Co Q-10] 300 mg PO 12/18/23 History allopurinoL 100 mg PO DAILY 12/18/23 12/18/23 History amLODIPine BESYLATE/BENAZEPRIL 1 cap PO 12/18/23 History [amLODIPine BESYLATE/BENAZEPRIL 5-10 mg] hydroCHLOROthiazide 25 mg PO 12/18/23 History lisinopriL [Prinivil] 20 mg PO 12/18/23 History metFORMIN HCL [Glucophage] 500 mg PO TID 12/18/23 12/18/23 History
== END ==
LOC: 3 N SLEEP 11:13
PROVIDERS: ATTEND Internal Medicine
DX: G47.33 Obstructive sleep apnea (adult) (pediatric) (principal); I10 Essential (primary) hypertension; I25.10 Atherosclerotic heart disease of native coronary artery without angina pectoris; E78.5 Hyperlipidemia, unspecified; M10.9 Gout, unspecified; Z87.39 Personal history of other diseases of the musculoskeletal system and connective tissue; Z99.89 Dependence on other enabling machines and devices; Z79.899 Other long term (current) drug therapy; Z88.5 Allergy status to narcotic agent
CPT/HCPCS: 99212

== ENCOUNTER → 2024-06-22 | Outpatient (CLI) | payer MEDICARE ==
--- NOTE | 2024-06-22 07:37 | XR ---
EXAMINATION TYPE: XR KUB DATE OF EXAM: 06/22/2024 7:26 AM COMPARISON: 06/14/2023 CLINICAL INDICATION: Male, 73 years old with history of CALCULUS OF KIDNEY; [facility] TECHNIQUE: One radiographic view of the abdomen was obtained. FINDINGS: The bowel gas pattern is nonspecific without dilated loops of small or large bowel. . Fecal material and gas are demonstrated throughout the colon and rectum. There is no evidence for organome mayo or pneumoperitoneum. Multilevel degeneration changes of the spine. No acute osseous process. Pe lvic phleboliths are present. Stable right upper quadrant calcific indication measuring 14 mm left r enal calculi present inferiorly measuring 5 mm. Similar pelvic phleboliths. . This course of the fran rial vessels which are. IMPRESSION: Bilateral renal calculi not significantly changed from 06/14/2023. [facility], , 06/22/2024 7:35 AM
[2024-06-22 11:42] LABS: ALT 30 U/L (10-49); AST 26 U/L (14-35); Albumin 4.5 g/dL (3.8-4.9); Alkaline Phosphatase 56 U/L (41-126); BUN/Creat Ratio 19.25 Ratio (12.00-20.00); Blood Urea Nitrogen 15.4 mg/dL (9.0-27.0); Calcium 9.8 mg/dL (8.7-10.3); Carbon Dioxide 24.3 mmol/L (21.6-31.8); Chloride 103 mmol/L (96-109); Globulin 2.5 g/dL (1.6-3.3); Glucose 141 mg/dL (70-110); Sodium 140 mmol/L (135-145); Total Bilirubin 0.4 mg/dL (0.3-1.2)
== END | disposition home or self-care (01) ==
LOC: LABWHC1 06:46
PROVIDERS: ATTEND Urology
DX: N20.0 Calculus of kidney (principal); Z87.442 Personal history of urinary calculi
CPT/HCPCS: 36415; 74018; 80053; 84153

== ENCOUNTER → 2024-08-12 | Outpatient (CLI) | payer MEDICARE ==
[2024-08-12 10:59] VITALS: BP 143/76; PULSE 97; RESP 12; TEMP 98.1
--- NOTE | 2024-08-12 11:19 | P.PROGSL ---
Subjective DATE: 08/12/2024 FOLLOW UP VISIT. Patient with obstructive sleep apnea hypopnea syndrome return to sleep center for follow-up visit. Information from previous visit have been reviewed. Patient is using PAP equipment every night for the whole night, getting PAP supplies in time. CPAP unit is noisy. [place] sleepiness scale is 3, which is normal. I checked information from PAP unit. PAP unit pressure 11 cm H2O. Usage is 100% for more then 4 hours, average 6.2 hours per night. Leak is 22 l/m, which is in acceptable range. Apnea Hypopnea Index is 1.4, which is normal. MEDICATIONS have been reviewed, please see below. During physical exam: GENERAL: A pleasant patient without any distress. VITAL SIGNS: Please see below, weight is 186.2 lbs. HEENT: PERRLA, EOMI.low position of soft palate, Mallapati 4 . NECK: Supple. No JVD. LUNGS: Clear to percussion and to auscultation. Good air exchange. No wheezing or rhonchi. HEART: S1, S2 regular. ABDOMEN: Soft and nontender.[] EXTREMITIES: No clubbing or cyanosis. NETWORK INTERN: Awake, alert, and oriented x3. No focal deficit. Impressions: 1. Obstructive sleep apnea-hypopnea syndrome. Patient demonstrated great compliance with treatment, benefiting from treatment. CPAP unit is old, noisy, motor life expectancy was exceeded. 2. Coronary artery disease, status post recent 3 stent insertions. 3. Hypertension. 4. Hyperlipidemia. 5. Gout. 6. History of periodic limb movements, no complaints at the present time. Plan: 1. Continue using PAP equipment every night for the whole night. Prescription to replace CPAP unit. 2. Sleep hygiene with regular time in bed for at least 7.5-8 hours 3. PAP unit should stay lower then position of the head. 4. Advised patient to remove all remaining water from humidifier canister daily and make it dry after each usage. Refill canister with fresh distilled water before each usage. 5. Watching weight. 6. Precautions related to driving. No driving if feel any sleepiness. 7. I will maintain prescription for PAP supplies including mask, tube, filters. 8. Follow up visit in 1-3 months after patient will get new CPAP unit. Thank you very much for allowing me to participate in the management of your patient. Jonnie Cruz MD, PhD, FAASM. Diplomat of [place] [employer], Sleep Medicine Board by [place] [employer] Farm Equipment Technician of [facility] [place] Objective - Vital Signs Vital Signs: Vital Signs Temp 98.1 F 08/12/24 10:58 Pulse 97 08/12/24 10:58 Resp 12 08/12/24 10:58 BP 143/76 08/12/24 10:58 Pulse Ox 99 08/12/24 10:58 FiO2 Intake & Output 08/11/24 08/12/24 08/12/24 18:59 06:59 18:59 Weight 84.368 kg Home Medications: Home Medications Medication Instructions Recorded Confirmed Type Aspirin [[place] Aspirin EC] 81 mg PO 12/18/23 History Atorvastatin [Lipitor] 40 mg PO DAILY 12/18/23 12/18/23 History Cholecalciferol [Vitamin D3 (25 1,000 PO DAILY 12/18/23 History Mcg = 1000 Iu)] Empagliflozin [Jardiance] 10 mg PO 12/18/23 History Fish Oil/Dha/Epa [Fish Oil 1,200 1 each PO 12/18/23 History mg Fish Oil] Insulin Aspart [NovoLOG] 10 - 20 TID 12/18/23 History Insulin Glargine,Hum.rec.anlog 50 units SQ HS 12/18/23 12/18/23 History [Lantus Solostar Pen] Magnesium Carb,Citrate,Oxide 400 mg PO DAILY 12/18/23 12/18/23 History [Magnesium Complex] Metoprolol Succinate (ER) [Toprol 25 mg PO DAILY 12/18/23 12/18/23 History Xl] Niacin 500 mg PO 12/18/23 History Nitroglycerin 0.4 mg SL PRN 12/18/23 History Potassium Citrate [Potassium 10 meq PO 12/18/23 History Citrate ER] Semaglutide [Ozempic] 1 mg SQ 12/18/23 History Ubidecarenone [Co Q-10] 300 mg PO 12/18/23 History allopurinoL 100 mg PO DAILY 12/18/23 12/18/23 History amLODIPine BESYLATE/BENAZEPRIL 1 cap PO 12/18/23 History [amLODIPine BESYLATE/BENAZEPRIL 5-10 mg] hydroCHLOROthiazide 25 mg PO 12/18/23 History lisinopriL [Prinivil] 20 mg PO 12/18/23 History metFORMIN HCL [Glucophage] 500 mg PO TID 12/18/23 08/12/24 History Evolocumab [Repatha Pushtronex] See Rx Instructions .ROUTE .COMPLEX 08/12/2411/01 History Ticagrelor [Brilinta] 90 mg PO BID 08/12/24 08/12/24 History
== END ==
LOC: 3 N SLEEP 10:46
PROVIDERS: ATTEND Internal Medicine
DX: G47.33 Obstructive sleep apnea (adult) (pediatric) (principal); I10 Essential (primary) hypertension; E78.5 Hyperlipidemia, unspecified; I25.10 Atherosclerotic heart disease of native coronary artery without angina pectoris; M10.9 Gout, unspecified; Z99.89 Dependence on other enabling machines and devices; Z87.39 Personal history of other diseases of the musculoskeletal system and connective tissue; Z88.5 Allergy status to narcotic agent
CPT/HCPCS: 99212

== ENCOUNTER → 2024-11-26 | Outpatient (CLI) | payer MEDICARE ==
[2024-11-26 14:32] VITALS: BP 132/72; PULSE 92; RESP 16; TEMP 98
--- NOTE | 2024-11-26 14:51 | P.PROGSL ---
Subjective DATE: 11/26/2024 FOLLOW UP VISIT. Patient with obstructive sleep apnea hypopnea syndrome return to sleep center for follow-up visit. Information from previous visit have been reviewed. This is first visit after patient received new CPAP unit. Patient is using PAP equipment every night for the whole night, getting PAP supplies in time. The patient does not have significant problems with the mask, PAP unit and humidification. [place] sleepiness scale is 3, which is normal. I checked information from PAP unit. PAP unit pressure 11 cm H2O. Usage is 100% for more then 4 hours, average 6.5 hours per night. Leak is 31.7 l/m, which is in acceptable range. Apnea Hypopnea Index is 1.9, which is normal. MEDICATIONS have been reviewed, please see below. During physical exam: GENERAL: A pleasant patient without any distress. VITAL SIGNS: Please see below, weight is 189 lbs. HEENT: PERRLA, EOMI.low position of soft palate, Mallapati 4 . NECK: Supple. No JVD. LUNGS: Clear to percussion and to auscultation. Good air exchange. No wheezing or rhonchi. HEART: S1, S2 regular. ABDOMEN: Soft and nontender.[] EXTREMITIES: No clubbing or cyanosis. PHYSICAL TESTING SUPERVISOR: Awake, alert, and oriented x3. No focal deficit. Impressions: 1. Obstructive sleep apnea-hypopnea syndrome. Patient demonstrated great compliance with treatment, benefiting from treatment. 2. Coronary artery disease, status post 3 stent insertions. 3. Hyperlipidemia. 4. Hypertension. 5. Gout. 6. History of periodic limb movements, presently no complaints or problems. Plan: 1. Continue using PAP equipment every night for the whole night. 2. Sleep hygiene with regular time in bed for at least 7.5-8 hours 3. PAP unit should stay lower then position of the head. 4. Advised patient to remove all remaining water from humidifier canister daily and make it dry after each usage. Refill canister with fresh distilled water before each usage. 5. Watching weight. 6. Precautions related to driving. No driving if feel any sleepiness. 7. I will maintain prescription for PAP supplies including mask, tube, filters. 8. Follow up visit in 8 months or earlier if patient has any problems. Thank you very much for allowing me to participate in the management of your patient. Jonnie Cruz MD, PhD, FAASM. Diplomat of [place] Board [employer] Sleep Medicine, Sleep Medicine Board by [place] Board of Internal Medicine Vehicle Glass Technician of [facility] [place] Objective - Vital Signs Vital Signs: Vital Signs Temp 98 F 11/26/24 14:30 Pulse 92 11/26/24 14:30 Resp 16 11/26/24 14:30 BP 132/72 11/26/24 14:30 Pulse Ox 98 11/26/24 14:30 FiO2 Intake & Output 11/25/24 11/26/24 11/26/24 18:59 06:59 18:59 Weight 85.729 kg Home Medications: Home Medications Medication Instructions Recorded Confirmed Type Aspirin [[place] Aspirin EC] 81 mg PO 12/18/23 History Atorvastatin [Lipitor] 40 mg PO DAILY 12/18/23 12/18/23 History Cholecalciferol [Vitamin D3 (25 1,000 PO DAILY 12/18/23 History Mcg = 1000 Iu)] Empagliflozin [Jardiance] 10 mg PO 12/18/23 History Fish Oil/Dha/Epa [Fish Oil 1,200 1 each PO 12/18/23 History mg Fish Oil] Insulin Aspart [NovoLOG] 10 - 20 TID 12/18/23 History Insulin Glargine,Hum.rec.anlog 50 units SQ HS 12/18/23 12/18/23 History [Lantus Solostar Pen] Magnesium Carb,Citrate,Oxide 400 mg PO DAILY 12/18/23 12/18/23 History [Magnesium Complex] Metoprolol Succinate (ER) [Toprol 25 mg PO DAILY 12/18/23 12/18/23 History Xl] Niacin 500 mg PO 12/18/23 History Nitroglycerin 0.4 mg SL PRN 12/18/23 History Potassium Citrate [Potassium 10 meq PO 12/18/23 History Citrate ER] Semaglutide [Ozempic] 1 mg SQ 12/18/23 History Ubidecarenone [Co Q-10] 300 mg PO 12/18/23 History allopurinoL 100 mg PO DAILY 12/18/23 12/18/23 History amLODIPine BESYLATE/BENAZEPRIL 1 cap PO 12/18/23 History [amLODIPine BESYLATE/BENAZEPRIL 5-10 mg] hydroCHLOROthiazide 25 mg PO 12/18/23 History lisinopriL [Prinivil] 20 mg PO 12/18/23 History metFORMIN HCL [Glucophage] 500 mg PO TID 12/18/23 08/12/24 History Evolocumab [Repatha Pushtronex] See Rx Instructions .ROUTE .COMPLEX 08/12/24 08/12/24 History Ticagrelor [Brilinta] 90 mg PO BID 08/12/24 08/12/24 History
== END ==
LOC: 3 N SLEEP 14:16
PROVIDERS: ATTEND Internal Medicine
DX: G47.33 Obstructive sleep apnea (adult) (pediatric) (principal); I25.10 Atherosclerotic heart disease of native coronary artery without angina pectoris; E78.5 Hyperlipidemia, unspecified; I10 Essential (primary) hypertension; M10.9 Gout, unspecified; Z99.89 Dependence on other enabling machines and devices; Z95.5 Presence of coronary angioplasty implant and graft; Z88.5 Allergy status to narcotic agent; Z88.8 Allergy status to other drugs, medicaments and biological substances
CPT/HCPCS: 99212

== ENCOUNTER → 2024-11-30 | Outpatient (CLI) | payer MEDICARE ==
--- NOTE | 2024-11-30 11:11 | XR ---
EXAMINATION TYPE: XR KUB DATE OF EXAM: 11/30/2024 11:01 AM COMPARISON: 06/22/2024 CLINICAL INDICATION: Male, 74 years old with history of CALCULUS OF KIDNEY; [facility], pain TECHNIQUE: One radiographic view of the abdomen was obtained. FINDINGS: Diffuse arterial calcifications. Findings may reflect underlying chronic kidney disease. There is an oval 1.5 cm stone at the right mid abdomen. Electronic device projects over the right iliac crest. Sc attered mild cysts stool. Nonobstructive bowel gas pattern. Small pelvic phleboliths. IMPRESSION: 1. Oval 1.5 cm right renal stone. 2. Scattered mild stool. Nonobstructive bowel gas pattern. [facility], , 11/30/2024 11:08 AM
== END | disposition home or self-care (01) ==
LOC: RADXRMAIN 10:44
PROVIDERS: ATTEND Urology
DX: N20.0 Calculus of kidney (principal)
CPT/HCPCS: 74018

== ENCOUNTER → 2024-12-02 | Outpatient (CLI) | payer MEDICARE ==
[2024-12-02 15:40] LABS: ALT 21 U/L (10-49); AST 23 U/L (14-35); Albumin 4.3 g/dL (3.8-4.9); Albumin/Globulin Ratio 1.54 Ratio (1.60-3.17); Alkaline Phosphatase 54 U/L (41-126); Blood Urea Nitrogen 17.5 mg/dL (9.0-27.0); Calcium 9.9 mg/dL (8.7-10.3); Carbon Dioxide 28.3 mmol/L (21.6-31.8); Chloride 97 mmol/L (96-109); Chol/HDL Ratio 1.37 Ratio; Globulin 2.8 g/dL (1.6-3.3); Glucose 121 mg/dL (70-110); LDL Cholesterol,Calculated 3.1 mg/dL (0.0-131.0); Potassium 4.3 mmol/L (3.5-5.5); Sodium 135 mmol/L (135-145); Total Bilirubin 0.8 mg/dL (0.3-1.2); Total Protein 7.1 g/dL (6.2-8.2); VLDL Calculation 11.86 mg/dL (5.00-40.00)
== END | disposition home or self-care (01) ==
LOC: LABWHC1 07:33
PROVIDERS: ATTEND Internal Medicine Endocrinology, Diabetes & Metabolism
DX: E11.65 Type 2 diabetes mellitus with hyperglycemia (principal)
CPT/HCPCS: 36415; 80053; 80061; 82043; 82570; 83036; 84443